=== PATIENT | male | born 1995 | race Caucasian/White ===

== ENCOUNTER 2021-07-07 21:02 | Emergency (ER) | payer MEDICAID ==
[~2021-07-07] VITALS: Ht 193 cm; Wt 101.6 kg
--- NOTE | 2021-07-07 21:10 | NUR ---
26 Y/O M BIB SELF WITH C/O ABDOMINAL PAIN. PT WAS WORKING OUT HARD AND HEARD A POP NOISE. PT WAS AFRAID HE HERNIATED. PAIN IS 7/10. PT DENIES DIZZINESS/ NAUSEA/ V/ COUGH/ HEADACHE/ FEVER. PT IS A&OX4 , AMBULATORY WITH EVEN AND STEADY GAIT. PMH: SVT ALLERGIES: BUPROPRION
[2021-07-07 21:13] VITALS: BP 147/84
--- NOTE | 2021-07-07 21:13 | NUR ---
26 y/o male c/o hearing pop noise on the lower abd while working out at the gym pmhx:svt allergies:[email or web address]
--- NOTE | 2021-07-07 21:19 | NUR ---
PT TAKEN TO LOBBY
--- NOTE | 2021-07-07 22:16 | NUR ---
PT AMBULATED TO BED 06.
--- NOTE | 2021-07-07 22:17 | NUR ---
PT TAKEN TO BED 6
--- NOTE | 2021-07-07 22:17 | NUR ---
ERMD AT BEDSIDE.
[2021-07-07] MEDS ORDERED: IBUP-2218 PO (22:49)
[2021-07-07] MEDS: IBUPROFEN 800 MG TAB PO ONE (23:35)
[2021-07-07 23:37] VITALS: BP 140/80
--- NOTE | 2021-07-07 23:44 | NUR ---
The patient's care was reviewed and supervised by Stacia Higuera RN, RN.
--- NOTE | 2021-07-07 23:47 | NUR ---
Patient discharged with v/s stable. Written and verbal after care instructions given and explained. Patient alert, oriented and verbalized understanding of instructions. Ambulatory with steady gait. All questions addressed prior to discharge. ID band removed. Patient advised to follow up with PMD. Rx of IBUPROFEN given. Opportunity to ask questions provided and answered.
== END 2021-07-07 23:47 | disposition home or self-care (01) ==
LOC: MED 21:02
DX: S39.011A Strain of muscle, fascia and tendon of abdomen, initial encounter (principal); I47.1 Supraventricular tachycardia; Z79.899 Other long term (current) drug therapy; Z88.8 Allergy status to other drugs, medicaments and biological substances; X58.XXXA Exposure to other specified factors, initial encounter; Y93.89 Activity, other specified; Y92.89 Other specified places as the place of occurrence of the external cause; Y99.8 Other external cause status
CPT/HCPCS: 99282

== ENCOUNTER 2021-10-21 05:20 | Emergency (ER) | payer MEDICAID ==
[~2021-10-21] VITALS: Ht 193 cm; Wt 95.3 kg
[~2021-10-21 05:20] MED LIST: IBUP-2218 PO
[2021-10-21 05:38] VITALS: BP 117/77
--- NOTE | 2021-10-21 05:38 | NUR ---
PT AMBULATORY BED 12
[2021-10-21 06:46] VITALS: BP 117/77
--- NOTE | 2021-10-21 06:46 | NUR ---
Patient discharged with v/s stable. Written and verbal after care instructions given and explained. Patient verbalized understanding. Ambulatory with steady gait. All questions addressed prior to discharge. Advised to follow up with PMD.
== END 2021-10-21 06:46 | disposition home or self-care (01) ==
LOC: MED 05:20
DX: R10.31 Right lower quadrant pain (principal); R10.32 Left lower quadrant pain; I25.10 Atherosclerotic heart disease of native coronary artery without angina pectoris; Z88.8 Allergy status to other drugs, medicaments and biological substances
CPT/HCPCS: 81002; 99282

== ENCOUNTER 2021-12-08 17:45 | Emergency (ER) | payer MEDICAID ==
[~2021-12-08] VITALS: Ht 193 cm; Wt 96.6 kg
[2021-12-08 18:12] VITALS: BP 126/87
--- NOTE | 2021-12-08 18:25 | NUR ---
PT AMBULATED TO ER BED 5
--- NOTE | 2021-12-08 18:38 | NUR ---
26 YO BIBS W C/O OF RAPID HEART RATE WHILE RESTING AT 130BPM. PT WAS PLAYING BASKETBALL APPROX 1 HR AGO AND STATED AFTERWARDS HIS HEART RATE WAS INCREASING. PMH: SVT MEDS: DENIES BUPROPION ALLERGY
--- NOTE | 2021-12-08 18:49 | NUR ---
Patient being evaluated by physician at bedside.
[2021-12-08] MEDS ORDERED: DIPH25TA53 PO (19:02)
[2021-12-08] MEDS ORDERED: PRED20TA5 PO (19:02)
[2021-12-08 19:18] VITALS: BP 126/87
--- NOTE | 2021-12-08 19:18 | NUR ---
Patient discharged with v/s stable. Written and verbal after care instructions given and explained. Patient alert, oriented and verbalized understanding of instructions. Ambulatory with steady gait. All questions addressed prior to discharge. ID band removed. Patient advised to follow up with PMD. Rx of BENADRYL & DELTASONE given. Patient educated on indication of medication including possible reaction and side effects. Opportunity to ask questions provided and answered.
== END 2021-12-08 19:18 | disposition home or self-care (01) ==
LOC: MED 17:45
DX: R00.2 Palpitations (principal); R21 Rash and other nonspecific skin eruption; I25.10 Atherosclerotic heart disease of native coronary artery without angina pectoris; Z88.8 Allergy status to other drugs, medicaments and biological substances; Z72.89 Other problems related to lifestyle
CPT/HCPCS: 93005; 99283

== ENCOUNTER 2022-01-02 01:17 | Emergency (ER) | payer MEDICAID ==
[~2022-01-02] VITALS: Ht 193 cm; Wt 93.0 kg
[~2022-01-02 01:17] MED LIST changes: +DIPH25TA53 PO; +PRED20TA5 PO
[2022-01-02 01:33] VITALS: BP 110/65
--- NOTE | 2022-01-02 01:35 | NUR ---
Patient to Lobby.
--- NOTE | 2022-01-02 02:08 | NUR ---
Dr. Barnett examining patient.
--- NOTE | 2022-01-02 02:37 | NUR ---
Patient returned back from X-ray.
[2022-01-02] MEDS ORDERED: NAPR-54 PO (03:03)
[2022-01-02 03:06] VITALS: BP 110/65
--- NOTE | 2022-01-02 03:06 | NUR ---
Patient discharged with v/s stable. Written and verbal after care instructions given and explained. Patient alert, oriented and verbalized understanding of instructions. [g ED.DCMODE] with [g ED.D/CMODE]. All questions addressed prior to discharge. ID band removed. Patient advised to follow up with PMD. Rx of naprosyn given. Patient educated on indication of medication including possible reaction and side effects. Opportunity to ask questions provided and answered.
== END 2022-01-02 03:06 | disposition home or self-care (01) ==
LOC: MED 01:17
DX: S23.41XA Sprain of ribs, initial encounter (principal); I25.10 Atherosclerotic heart disease of native coronary artery without angina pectoris; Z88.8 Allergy status to other drugs, medicaments and biological substances; X58.XXXA Exposure to other specified factors, initial encounter; Y93.89 Activity, other specified; Y92.89 Other specified places as the place of occurrence of the external cause; Y99.8 Other external cause status
CPT/HCPCS: 71101; 99283

== ENCOUNTER 2022-01-29 22:36 | Emergency (ER) | payer MEDICAID ==
[~2022-01-29] VITALS: Ht 193 cm; Wt 90.7 kg
[~2022-01-29 22:36] MED LIST changes: +NAPR-54 PO
[2022-01-29 23:25] VITALS: BP 130/72
--- NOTE | 2022-01-29 23:29 | NUR ---
TO LOBBY FOLLOWING TRIAGE
--- NOTE | 2022-01-30 01:50 | NUR ---
DR WRIGHT EXAMINED PT IN TRIAGE
[2022-01-30] MEDS ORDERED: DOXY25SU PO (02:08)
[2022-01-30 02:10] VITALS: BP 130/72
== END 2022-01-30 02:10 | disposition home or self-care (01) ==
LOC: MED 22:36
DX: L02.01 Cutaneous abscess of face (principal); I25.10 Atherosclerotic heart disease of native coronary artery without angina pectoris
CPT/HCPCS: 99283